=== PATIENT | female | born 1990 | race African-American/Black ===

== ENCOUNTER 2017-12-03 08:42 | Emergency (ER) | payer MEDICAID ==
[~2017-12-03] VITALS: Ht 152.4 cm; Wt 63.6 kg
[2017-12-03 08:45] VITALS: BP 134/76
== END 2017-12-03 10:22 | disposition home or self-care (01) ==
LOC: EMS 08:43
DX: R13.10 Dysphagia, unspecified (principal); F41.9 Anxiety disorder, unspecified; M54.6 Pain in thoracic spine; R07.9 Chest pain, unspecified; M54.2 Cervicalgia; G89.29 Other chronic pain
CPT/HCPCS: 99281